=== PATIENT | female | born 1945 | race Caucasian/White ===

== ENCOUNTER 2017-05-29 06:51 | Day surgery (SDC) | payer OTHER ==
[2017-05-29] MEDS ORDERED: TETRACAINE 0.5% OPHTH 1 DOSE AFFEYE ONE ×7 (07:15→10:33)
[2017-05-29] MEDS ORDERED: VIGAMOX 0.5% OPHTH 1 DOSE AFFEYE ONE ×5 (07:20→10:50)
[2017-05-29] MEDS ORDERED: PROLENSA OPHTH 1 DOSE AFFEYE ONE (07:31)
[2017-05-29] MEDS ORDERED: ALPHAGAN-P OPHTH 1 DOSE AFFEYE ONE ×2 (07:32→07:36)
[2017-05-29] MEDS ORDERED: MYDRIACIL OPHTH 1 DOSE AFFEYE ONE ×4 (07:34→09:15)
[2017-05-29] MEDS ORDERED: AK-DILATE 2.5% OPHTH 1 DOSE OP ONE ×5 (07:34→09:14)
[2017-05-29] MEDS ORDERED: CYCLOGYL 1% OPHTH 1 DOSE OP ONE ×5 (07:34→09:13)
[2017-05-29] MEDS ORDERED: VERSED ONE ×2 (08:04→15:40)
[2017-05-29] MEDS ORDERED: NS 500 ML IV 500 ML IV ONE (08:16)
[2017-05-29] MEDS ORDERED: AK-DILATE 10% OPHTH 1 DOSE AFFEYE ONE ×4 (09:11→10:06)
[2017-05-29] MEDS ORDERED: VERSED IVP ONE ×4 (09:17→10:02)
[2017-05-29] MEDS ORDERED: BETADINE OPHTH SOLN 5% EACHEYE ONE (10:25)
[2017-05-29] MEDS ORDERED: ADRENALINE CHL INJ IJ ONE ×2 (10:26→10:33)
[2017-05-29] MEDS ORDERED: XYLOCAINE-MPF 1% IJ ONE ×2 (10:26→10:33)
[2017-05-29] MEDS ORDERED: DUOVISC IO ONE ×2 (10:26→10:33)
[2017-05-29] MEDS ORDERED: BSS OPHTH (PLAIN) 500 ML with VANCOMYCIN HCL 500 MG VIAL 25 MG, ADRENALINE CHL INJ 1 MG IR ONE ×6 (10:27)
[2017-05-29 11:09] VITALS: BP 115/64
== END 2017-05-29 11:10 | disposition home or self-care (01) | DRG 125 ==
LOC: SURG1 06:51
PROVIDERS: ATTEND Ophthalmology
PROC: 08RJ3JZ Replacement of Right Lens with Synthetic Substitute, Percutaneous Approach (ICD-10-PCS; principal; 2017-05-29 08:15)
PROC: 08DJ3ZZ Extraction of Right Lens, Percutaneous Approach (ICD-10-PCS; principal; 2017-05-29 08:15)
DX: H25.11 Age-related nuclear cataract, right eye (principal); H25.011 Cortical age-related cataract, right eye; H52.221 Regular astigmatism, right eye
CPT/HCPCS: 99100; A4217; J0170; J2250; J3370